=== PATIENT | male | born 2000 | race Caucasian/White ===

== ENCOUNTER 2022-04-10 09:08 | Emergency (ER) | payer BC, SELFPAY ==
--- NOTE | ~2022-04-10 | XR_ITS ---
Left Shoulder Technique: AP and axillary views were obtained. Clinical History: Pain Findings: No fracture or dislocation is seen. Osseous alignment is anatomic. The glenohumeral and acr omioclavicular joint spaces are preserved. Soft tissues are unremarkable. Impression: Unremarkable left shoulder radiographs. Reviewed, dictated and finalized at [facility]. LASTER Impression: Unremarkable left shoulder radiographs.
[2022-04-10 09:21] VITALS: BP 131/62; PULSE 64; RESP 18; TEMP 36.6; O2SAT 100
--- NOTE | 2022-04-10 11:08 | ED.UPPEXIN ---
HPI - Extremity Injury (Upper) General Chief Complaint: Extremity Injury, Upper Stated Complaint: Left shoulder pain for a month Time Seen by Provider: 04/10/22 09:25 Source: patient Mode of arrival: ambulatory Limitations: no limitations History of Present Illness HPI narrative: This is a 22-year-old male that presents to the emergency department for left shoulder pain ongoing over the last month. No known certain injury or trauma. Reports he does do [employer]. Pain is sharp and nagging. It is worse at night and with certain movements. Reports intermittently he will have tingling in the arm. He has not been evaluated for this complaint yet. He has been taking Aleve with some relief. Denies fever, chest pain, shortness of breath, erythema, edema, weakness, or numbness. Related Data Allergies Allergy/AdvReac Type Severity Reaction Status Date / Time No Known Allergies Allergy Verified 04/10/22 09:29 Review of Systems Review of Systems: CONSTITUTIONAL: Denies fever CARDIOVASCULAR: Denies chest pain, or edema. RESPIRATORY: Denies dyspnea. SKIN: Denies rash MUSCULOSKELETAL: Reports joint pain, and myalgia. NEUROLOGIC: Denies numbness, or weakness. All systems reviewed & are unremarkable except as noted in HPI and below PMFSH Past Medical History Medical History (Updated 04/10/22 @ 11:16 by Mckenna Bahena PA-C) No active medical problems Social History Social History (Updated 04/10/22 @ 11:16 by Mckenna Bahena PA-C) Substance use: never Exam Narrative: GENERAL: Well-appearing, well-nourished, and in no acute distress. HEAD: Normocephalic, atraumatic. EYES: EOMI. CHEST: Clear to auscultation. No respiratory distress. No wheezes rales or rhonchi HEART: Regular rate and rhythm. No murmur heard. Normal peripheral pulses. EXTREMITIES: Normal range of motion. No edema or erythema. Normal radial pulse. Normal sensation. Strength equal in bilateral upper extremities (5/5) SKIN: Warm, dry, no rash. NEURO: No focal deficits. Alert and oriented x3. PSYCH: Normal mood and affect Course Vital Signs Vital signs: Vital Signs Temperature 97.9 F 04/10/22 09:21 Pulse Rate 64 04/10/22 09:21 Respiratory Rate 18 04/10/22 09:21 Blood Pressure 131/62 04/10/22 09:21 Pulse Oximetry 100 04/10/22 09:21 Oxygen Delivery Room Air 04/10/22 09:21 Temperature 97.9 F 04/10/22 09:21 Pulse Rate 64 04/10/22 09:21 Respiratory Rate 18 04/10/22 09:21 Blood Pressure 131/62 04/10/22 09:21 Pulse Oximetry 100 04/10/22 09:21 Oxygen Delivery Room Air 04/10/22 09:21 MDM - Extremity Injury (Upper) MDM Narrative Medical decision making narrative: Patient presents to the emergency department for left shoulder pain ongoing over the last month. No known injury or trauma. He is neurovascularly intact. Left shoulder x-rays without acute findings. Patient placed in a sling for comfort. Was encouraged to continue to do range of motion exercises so her shoulder does not get stiff. Instructed to rest, ice and take [id number] pain medication as needed. Will be prescribed muscle relaxer as needed for pain. Given follow-up with orthopedics. He was given warnings to return to the ER Differential Diagnosis Differential diagnosis: Likely other (shoulder sprain, rotator cuff tendonopathy) Imaging Data Radiologist's impression: ITS Impressions Shoulder X-Ray 04/10/22 09:46 Impression: Unremarkable left shoulder radiographs. Critical Care Time Critical Care Time Critical Care Time: No Discharge Plan Discharge Clinical Impression: Acute pain of left shoulder Patient Disposition: Home, Self-Care Condition: Stable Instructions: Shoulder Pain (ED) Additional Instructions: Return to the ER if you experience fever, redness and swelling of your arm, chest pain, shortness of breath, sudden onset weakness or numbness, or any other symptoms that are concerning to
== END 2022-04-10 11:23 | disposition home or self-care (01) ==
PROVIDERS: Emergency Provider Physician Assistant
DX: M25.512 Pain in left shoulder (principal)
CPT/HCPCS: 73030; 99283; A4565

== ENCOUNTER 2022-07-04 11:35 | Emergency (ER) | payer BC, SELFPAY ==
[2022-07-04 11:41] VITALS: BP 119/80; PULSE 66; RESP 18; TEMP 36.6; O2SAT 100
[2022-07-04 12:14] LABS: Appearance Urine Clear (Clear); Bilirubin Urine Negative (Negative); Blood Urine Negative (Negative); Color Urine Yellow (Yellow); Glucose Urine UA Negative (Negative); Ketones Urine Negative (Negative); Leukocyte Esterase Ur Negative LEU/UL (Negative); Nitrate Urine Negative (Negative); Protein Urine Negative (Negative); Specific Grav Ur 1.014 (1.001-1.035); pH Urine 7.5 (5.0-9.0)
[2022-07-04 12:16] LABS: Add Urine Microscopic? NO
--- NOTE | 2022-07-04 12:26 | ED.ABDPAIN ---
HPI - Abdominal Pain General Chief Complaint: Abdominal Pain Stated Complaint: abd pain Time Seen by Provider: 07/04/22 12:02 History of Present Illness HPI narrative: Patient is a 22-year-old male presenting with abdominal pain. Patient states that for the last 6 days he has had intermittent abdominal cramping. States that it is most severe in his epigastrium and left upper quadrant. States that he has had several episodes of vomiting but has not for several days. States that he has had a decreased appetite and some intermittent nausea. Reports bowel movements of smaller caliber though he attributes this to not eating very much. He denies melena or hematochezia. Denies dysuria or hematuria. No chest pain, shortness of breath, fevers, cough. Related Data Home Medications Medication Instructions Recorded Confirmed acetaminophen 500 mg tablet 500 mg PO Q6H PRN 04/13/22 04/13/22 (Tylenol Extra Strength) hydrocodone 5 mg-acetaminophen 325 1 tablet PO Q8H PRN 04/13/22 04/13/22 mg tablet Allergies Allergy/AdvReac Type Severity Reaction Status Date / Time No Known Allergies Allergy Verified 07/04/22 11:51 Review of Systems Review of Systems: All systems reviewed & are unremarkable except as noted in HPI and below PMFSH Past Medical History Medical History Raynauds disease Surgical History Surgical History [place] teeth extracted Family History Family History Mother Breast cancer Grandparent Diabetes mellitus Social History Social History Smoking status: Unknown if ever smoked Alcohol intake: current Substance use: current Substance use type: marijuana Living arrangements: alone Occupation/Education: occupation 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 HEAD: Normocephalic, atraumatic. EYES: PERRLA and EOMI. ENT: Nares clear, no rhinorrhea or epistaxis. Mucous membranes moist. NECK: Supple. CHEST: Clear to auscultation. No respiratory distress. HEART: Regular rate and rhythm. No murmur heard. Normal peripheral pulses. ABDOMEN: Soft, nontender, nondistended, no guarding or rebound EXTREMITIES: Normal range of motion. No edema. SKIN: Warm, dry, no rash. NEURO: No focal deficits. Alert and oriented x3. PSYCH: Normal mood and affect. Course Vital Signs Vital signs: Vital Signs Temperature 97.8 F 07/04/22 11:41 Pulse Rate 66 07/04/22 11:41 Respiratory Rate 18 07/04/22 11:41 Blood Pressure 119/80 07/04/22 11:41 Pulse Oximetry 100 07/04/22 11:41 Oxygen Delivery Room Air 07/04/22 11:41 Temperature 97.8 F 07/04/22 11:41 Pulse Rate 65 07/04/22 14:10 Respiratory Rate 18 07/04/22 11:41 Blood Pressure 112/68 07/04/22 14:10 Pulse Oximetry 99 07/04/22 14:10 Oxygen Delivery Room Air 07/04/22 11:41 MDM - Abdominal Pain MDM Narrative Medical decision making narrative: Patient is a 22-year-old male presenting with about a week of intermittent abdominal cramping and nausea. Vitals are within normal limits. Patient is well-appearing and in no acute distress. Exam is unremarkable. Plan for belly labs, fluids, Pepcid, Zofran. Suspect possible gastritis vs esophagitis vs pancreatitis. Blood work is unremarkable. Lipase is normal. UA is unremarkable. Patient reports improvement in his pain following Pepcid, Zofran, GI cocktail. Suspect gastritis/esophagitis. We will get him started on a course of Pepcid. Advised PCP follow-up. Appropriate return precautions given. Patient voiced understanding was agreeable with plan. Discharged in stable condition Differential Diagnosis Differential diagnosis: Likely abdominal pa
[2022-07-04] MEDS: SODIUM CHLORIDE 0.9% IV 1,000 ML 999 ML IV CONT (12:42)
[2022-07-04] MEDS: FAMOTIDINE 20 MG/2 ML VIAL IV PUSH (12:43)
[2022-07-04] MEDS: ONDANSETRON INJ 4 MG/2 ML VIAL IV PUSH (12:43)
[2022-07-04 12:58] LABS: Basophils Absolute Auto 0.1 K/mm3 (0.0-0.1); Basophils Percent Auto 0.8 % (0.2-1.2); Eosinophils Absolute Auto 0.4 K/mm3 (0-0.3); Eosinophils Percent Auto 6.7 % (0-4.4); Hematocrit 47.1 % (42.0-52.0); Hemoglobin 16.7 g/dL (14.0-18.0); Lymphocytes Absolute Auto 2.47 K/mm3 (0.9-3.2); Lymphocytes Percent Auto 41.2 % (18.3-44.2); Mean Corpuscular HGB Conc 35.5 g/dl (32-36); Mean Corpuscular Hemoglobin 31.9 pg (26-34); Mean Corpuscular Volume 89.9 fl (80-100); Mean Platelet Volume 11.3 fl (7.4-10.4); Monocytes Absolute Auto 0.5 K/mm3 (0.1-0.6); Monocytes Percent Auto 8.8 % (2.6-8.5); Neutrophils Absolute Auto 2.6 K/mm3 (1.3-6.7); Neutrophils Percent Auto 42.5 % (45.5-73.1); Platelet Count Result 188 k/mm3 (150-375); Red Blood Count 5.24 M/mm3 (4.6-6.20); Red Cell Distribution Width 12.4 % (11.5-14.5)
[2022-07-04 13:13] LABS: Alanine Aminotransferase 24 U/L (6-50); Alkaline Phosphatase 46 U/L (38-126); Anion Gap 10 mmol/L (8-16); Aspartate Amino Transferase 32 U/L (17-59); Bilirubin,Total 1.1 mg/dL (0.2-1.3); Blood Urea Nitrogen 11 mg/dL (9-20); Calcium 9.3 mg/dL (8.4-10.2); Carbon Dioxide 25 mmol/L (22-30); Chloride 102 mmol/L (98-107); Estimated CRCL calculation 122 ml/min; Estimated Glomerular Filt Rate > 60; Glucose 114 mg/dL (65-110); Lipase 129 U/L (23-300); Sodium 137 mmol/L (137-145)
[2022-07-04] MEDS: BELLADONNA ALK/PHENOB ELIX 10 ML, MAG HYDROX/ALUMINUM HYD/SIMETH 30 ML, LIDOCAINE HCL 2... PO (13:45)
[2022-07-04 14:10] VITALS: BP 112/68; PULSE 65; O2SAT 99
== END 2022-07-04 14:11 | disposition home or self-care (01) ==
PROVIDERS: Emergency Medicine; Emergency Provider Emergency Medicine; PCP Physician Assistant Medical
DX: R10.13 Epigastric pain (principal); R11.2 Nausea with vomiting, unspecified; I73.00 Raynaud's syndrome without gangrene
CPT/HCPCS: 36415; 80053; 81003; 83690; 85025; 96361; 96374; 96375; 99284; A9270; J2405; J7030